=== PATIENT | male | born 1955 | race Caucasian/White ===

== ENCOUNTER 2017-12-14 21:35 | Emergency (ER) | payer BC ==
[~2017-12-14] VITALS: Ht 180.3 cm; Wt 133.8 kg
--- NOTE | 2017-12-14 21:38 | ED.ADGEN ---
Past History Past Medical History: Arthritis, Hypertension, Other Past Surgical History: Other Alcohol Use: None Drug Use: None Adult General Chief Complaint Chief Complaint "... 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 . . and was all contorted up under the dash.. and then I started getting this neck spasm.. and it gotten worse..." HPI HPI Patient is a 62 year old male who presents with above hx and complaints neck muscle spasms. Patient does have some mild Torticollis on the right. Patient denies any specific trauma to his neck. Pain appears to be localized primarily in the paracervical and trapezius muscle on the right. There is no midline tenderness. No history of dysfunction with urination or defecation. Hand medical science liaison strength is good. Patient denies any history of cancer. Patient denies any fevers. Patient denies any history of immunosuppression. Patient is able to bend neck forward and side to side but has guarded movements because of the muscle spasms on the right. She does have a history of multiple degenerative joint problems and arthritis and other large joints of his body. Review of Systems Review of Systems Constitutional: Denies fever or chills [] Eyes: Denies change in visual acuity, redness, or eye pain [] HENT: Denies nasal congestion or sore throat [Co]plains of neck pain Respiratory: Denies cough or shortness of breath [] Cardiovascular: No additional information not addressed in HPI [] GI: Denies abdominal pain, nausea, vomiting, bloody stools or diarrhea [] : Denies dysuria or hematuria [] Musculoskeletal: Denies back pain or joint pain [] Integument: Denies rash or skin lesions [] Neurologic: Denies headache, focal weakness or sensory changes [] Endocrine: Denies polyuria or polydipsia [] All other systems were reviewed and found to be within normal limits, except as documented in this note. Family History Family History Noncontributory Current Medications Current Medications Current Medications Medications (Trade) Dose Ordered Sig/Néstor Start Time Stop Time Status Last Admin Dose Admin Ketorolac Tromethamine (Toradol Im) 60 mg 1X ONCE 12/14/17 23:00 12/14/17 23:01 DC 12/14/17 23:26 60 MG Methylprednisolone Acetate (DEPO-Medrol IM) 40 mg 1X ONCE 12/14/17 23:00 12/14/17 23:01 DC 12/14/17 23:25 40 MG Morphine Sulfate (Morphine 10mg Syringe) 10 mg 1X ONCE 12/14/17 23:00 12/14/17 23:01 DC 12/14/17 23:28 10 MG Orphenadrine Citrate (Norflex) 60 mg 1X ONCE 12/14/17 23:00 12/14/17 23:01 DC 12/14/17 23:26 60 MG Allergies Allergies Allergies Coded Allergies Type Severity Reaction Last Updated Verified No Known Drug Allergies 05/21/14 No Physical Exam Physical Exam Constitutional: Moderately acute distress, non-toxic appearance. [] HENT: Normocephalic, atraumatic, bilateral external ears normal, oropharynx moist, no oral exudates, nose normal. [] Eyes: PERRLA, EOMI, conjunctiva normal, no discharge. [] Neck: Normal range of motion, trapezius and paracervical muscle tenderness, supple, no stridor. Movements are somewhat guarded because of muscle spasm Cardiovascular:Heart rate regular rhythm, no murmur [] Lungs & Thorax: Bilateral breath sounds clear to auscultation [] Abdomen: Bowel sounds normal, soft, no tenderness, no masses, no pulsatile masses. [] Skin: Warm, dry, no erythema, no rash. [] Back: No tenderness, no CVA tenderness. [] Extremities: No tenderness, no cyanosis, no clubbing, ROM intact, no edema. [] Arthritic complaints. Neurologic: Alert and oriented X 3, normal motor function, normal sensory function, no focal deficits noted. [] Psychologic: Affect normal, judgement normal, mood normal. [] Current Patient Data Vital Signs Vital Signs Date Time Temp Pulse Resp B/P (MAP) Pulse Ox O2 Delivery O2 Flow Rate FiO2 12/15/17 00:15 77 18 142/82 (102) 95 Room Air 12/14/17 22:04 98.5 EKG EKG [] Radiology/Procedures Radiology/Procedures CT PE shows arthritic changes but no obvious fracture or dislocation. Does have some disc disease. See formal report when available[] Course & Med Decision Making Course & Med Decision Making Pertinent Labs and Imaging studies reviewed. (See chart for details). Ice packs and gentle massage. Tylenol and ibuprofen for pain . If marked discomfort take Vicoprofen and Flexeril for muscle spasms. Follow-up primary care. Return if any concerns. May need further evaluation and MRI if no improvement. [] Final Impression Final Impression 1. Torticollis[] Dragon Disclaimer Dragon Disclaimer This electronic medical record was generated, in whole or in part, using a voice recognition dictation system. JUANIS MARIE MD Dec 14, 2017 21:38
[2017-12-14] MEDS ORDERED: MORPHINE SULFATE 10 MG/ML SYRINGE. SQ ONE (23:00)
[2017-12-14] MEDS ORDERED: KETOROLAC 60 MG/2 ML VIAL. IM ONE (23:00)
[2017-12-14] MEDS ORDERED: ORPHENADRINE CITRATE 60 MG/2 ML VIAL. IM ONE (23:00)
[2017-12-14] MEDS ORDERED: methylPREDNISolone ACETATE 40 MG/ML VIAL. IM ONE (23:00)
--- NOTE | 2017-12-14 23:42 | RAD ---
CT cervical spine without contrast TECHNIQUE: Helical multiplanar reconstructed noncontrast CT imaging of the cervical spine was acquired. HISTORY: Neck injury, stiffness and neck pain. FINDINGS: Craniocervical junction intact. Chronic sclerotic ossicles about the C1-C2 atlantodental articulation and mild joint capsule thickening and arthritic change. Cervical vertebral body height and alignment intact. No fracture of the cervical spine. 3 mm right apical pulmonary nodule. Scattered soft disc bulges, disc osteophytes and uncovertebral facet osteophytes with spinal canal and neural foraminal stenoses of the cervical spine. Paraspinal tissues are unremarkable. IMPRESSION: No acute osseous injury of the cervical spine. Cervical disc disease as described above. 3 mm right apical pulmonary nodule, in a low-risk patient no follow-up is required, in a patient with risk factors for malignancy follow-up CT imaging in 12 months would be advised per the Fleischner guidelines. Exposure: One or more of the following individualized dose reduction techniques were utilized for this examination: 1. Automated exposure control 2. Adjustment of the mA and/or kV according to patient size 3. Use of iterative reconstruction technique Electronically signed by: Ismael Obiren MD (12/14/2017 11:38 PM) [id number]
[2017-12-14] MEDS ORDERED: CYCL-331 PO (23:52)
[2017-12-14] MEDS ORDERED: HYDR-79 PO (23:52)
[2017-12-15 00:15] VITALS: BP 142/82
== END 2017-12-15 00:15 | disposition home or self-care (01) ==
LOC: ER 21:35
DX: M43.6 Torticollis (principal); M19.90 Unspecified osteoarthritis, unspecified site; I10 Essential (primary) hypertension
CPT/HCPCS: 72125; 96372; 99284; J1030; J1885; J2270; J2360